=== PATIENT | female | born 1940 | race Two or more races ===

== ENCOUNTER 2023-08-02 20:34 | Inpatient (IN) | payer MEDICARE, OTHER ==
[~2023-08-02] VITALS: Ht 149.9 cm; Wt 50.8 kg
[2023-08-02 23:00] VITALS: BP 179/65; TEMP 97.9; O2SAT 100
[2023-08-02] MEDS ORDERED: HYDR-4077 PO (23:58)
[2023-08-02] MEDS ORDERED: APIX2.5T PO (23:58)
[2023-08-02] MEDS ORDERED: CLOP75TA15 PO (23:58)
[2023-08-02] MEDS ORDERED: FURO-145 PO (23:58)
[2023-08-02] MEDS ORDERED: LOSA50TA39 PO (23:58)
[2023-08-02] MEDS ORDERED: ATOR40TA PO (23:58)
[2023-08-02] MEDS ORDERED: NIFE-34 PO (23:58)
[2023-08-02] MEDS ORDERED: NEBI10TA2 PO (23:58)
[2023-08-03] MEDS ORDERED: ACETAMINOPHEN 325 MG TABLET PO PRN (02:00)
[2023-08-03] MEDS ORDERED: ONDANSETRON HCL/PF 4 MG/2 ML VIAL IVP PRN (02:00)
[2023-08-03] MEDS ORDERED: ZOLPIDEM TARTRATE 5 MG TABLET PO PRN (02:00)
[2023-08-03] MEDS: CEFTRIAXONE 1 G in IV D5W 50 ML IV SCH ×2 (02:00→21:10)
[2023-08-03] MEDS ORDERED: Z GUARD REMEDY 4 OZ OINT TP PRN (02:00)
[2023-08-03] MEDS ORDERED: MAG HYDROX/AL HYDROX/SIMETH 30 ML UDC PO PRN (02:00)
[2023-08-03] MEDS ORDERED: MAGNESIUM HYDROXIDE 30 ML UDC PO PRN (02:00)
[2023-08-03 02:30] VITALS: BP 156/65; O2SAT 98
[2023-08-03 04:00] VITALS: BP 148/72; TEMP 98.8; O2SAT 95
[2023-08-03 05:58] LABS: BASOPHILS % (AUTO) 0.3 % (0.0-2.0); EOSINOPHILS # (AUTO) 0.1 K/uL (0.0-0.7); EOSINOPHILS % (AUTO) 0.7 % (0.0-6.0); HEMATOCRIT 27 % (33-45); HEMOGLOBIN 8.9 g/dL (11.5-14.8); LYMPHOCYTES # (AUTO) 1.1 K/uL (0.8-4.8); LYMPHOCYTES % (AUTO) 7.4 % (20.0-44.0); MEAN CORPUSCULAR HEMOGLOBIN 30 PG (26.0-33.0); MEAN CORPUSCULAR HGB CONC 33 g/dl (31.0-36.0); MEAN CORPUSCULAR VOLUME 91 fL (82-100); MONOCYTES # (AUTO) 1.5 K/uL (0.1-1.30); MONOCYTES % (AUTO) 9.8 % (2.0-12.0); NEUTROPHILS # (AUTO) 12.7 K/uL (1.8-8.9); NEUTROPHILS % (AUTO) 81.8 % (43.0-81.0); PLATELET COUNT (AUTO) 242 K/uL (150-450); RED BLOOD CELL COUNT(AUTO) 2.91 MIL/uL (4.0-5.2); RED CELL DISTRIBUTION WIDTH 14.1 % (11.5-15.0); WHITE BLOOD COUNT (AUTO) 15.5 K/uL (4.3-11.0)
[2023-08-03 06:15] LABS: BAND % (MANUAL) 5 % (0.0-5.0); LYMPHOCYTES % (MANUAL) 8 % (16-48); MONOCYTES % (MANUAL) 2 % (0-11.0); MYELOCYTES % 2 % (0-0); NEUTROPHILS % (MANUAL) 83 (42-76); PLATELET ESTIMATE ADEQUATE
[2023-08-03 06:40] LABS: CALCIUM, SERUM 7.9 mg/dL (8.5-10.1); CREATININE 0.7 mg/dL (0.6-1.3); PHOSPHORUS 2.6 mg/dL (2.5-4.9)
[2023-08-03 08:00] VITALS: BP 134/50; TEMP 98.4; O2SAT 94
[2023-08-03] MEDS ORDERED: PANTOPRAZOLE 40 MG VIAL IV SCH (09:00)
[2023-08-03] MEDS ORDERED: ENOXAPARIN SODIUM 30 MG/0.3 ML DISP.SYRIN SQ SCH (09:00)
[2023-08-03] MEDS: POTASSIUM CHLORIDE 20 MEQ TAB.PRT.SR PO SCH ×3 (09:08→11:01)
[2023-08-03] MEDS: hydrALAZINE HCL 50 MG TABLET PO SCH ×3 (09:09→17:13)
[2023-08-03] MEDS: CLOPIDOGREL BISULFATE 75 MG TABLET PO SCH (09:09)
[2023-08-03] MEDS: FUROSEMIDE 40 MG/4 ML VIAL IV SCH ×2 (09:09→17:12)
[2023-08-03] MEDS: LOSARTAN POTASSIUM 50 MG TABLET PO SCH (09:10)
[2023-08-03] MEDS: METOPROLOL TARTRATE 50 MG TABLET PO SCH ×2 (09:10→17:14)
[2023-08-03] MEDS: NIFEdipine XL (30MG) 30 MG TAB PO SCH (09:11)
[2023-08-03] MEDS: APIXABAN 2.5 MG TABLET PO SCH ×2 (09:12→17:13)
[2023-08-03] MEDS: DOXYCYCLINE 100 MG in IV D5W 100 ML IV SCH ×2 (09:13→20:25)
[2023-08-03 16:00] VITALS: BP 142/57; TEMP 98.1; O2SAT 96
[2023-08-03 20:00] VITALS: BP 137/59; TEMP 98.4
[2023-08-03] MEDS: ATORVASTATIN 40 MG TABLET PO SCH (21:10)
[2023-08-04 05:43] LABS: BASOPHILS % (AUTO) 0.2 % (0.0-2.0); EOSINOPHILS # (AUTO) 0.2 K/uL (0.0-0.7); EOSINOPHILS % (AUTO) 1.3 % (0.0-6.0); HEMATOCRIT 26 % (33-45); HEMOGLOBIN 8.6 g/dL (11.5-14.8); LYMPHOCYTES # (AUTO) 1.3 K/uL (0.8-4.8); LYMPHOCYTES % (AUTO) 9.3 % (20.0-44.0); MEAN CORPUSCULAR HEMOGLOBIN 31 PG (26.0-33.0); MEAN CORPUSCULAR HGB CONC 33 g/dl (31.0-36.0); MEAN CORPUSCULAR VOLUME 92 fL (82-100); MONOCYTES # (AUTO) 1.4 K/uL (0.1-1.30); NEUTROPHILS # (AUTO) 11.1 K/uL (1.8-8.9); NEUTROPHILS % (AUTO) 79.2 % (43.0-81.0); PLATELET COUNT (AUTO) 248 K/uL (150-450); RED CELL DISTRIBUTION WIDTH 14.8 % (11.5-15.0)
[2023-08-04 05:59] LABS: ALANINE AMINOTRANSFERASE 27 U/L (12-78); ALKALINE PHOSPHATASE 112 U/L (46-116); ASPARTATE AMINOTRANSFERASE 17 U/L (15-37); BILIRUBIN,TOTAL 0.7 mg/dL (0.2-1.0); CALCIUM, SERUM 8.7 mg/dL (8.5-10.1); CARBON DIOXIDE 25 mmol/L (21-32); CHLORIDE 95 mmol/L (98-107); CREATININE 0.9 mg/dL (0.6-1.3); GLUCOSE 101 mg/dL (74-106); MAGNESIUM 1.9 mg/dL (1.8-2.4); PHOSPHORUS 3.1 mg/dL (2.5-4.9); POTASSIUM 3.3 mmol/L (3.5-5.1); SODIUM SERUM 129 mmol/L (136-145); TOTAL PROTEIN, SERUM 6.1 g/dL (6.4-8.2); UREA NITROGEN, BLOOD 18 mg/dL (7-18)
[2023-08-04 07:00] VITALS: BP 170/59; TEMP 98.1; O2SAT 96
[2023-08-04] MEDS: DOXYCYCLINE 100 MG in IV D5W 100 ML IV SCH ×2 (08:23→20:47)
[2023-08-04] MEDS: FUROSEMIDE 100 MG/10 ML VIAL IV SCH ×3 (08:23→16:21)
[2023-08-04] MEDS: POTASSIUM CHLORIDE 20 MEQ TAB.PRT.SR PO SCH ×5 (08:24→12:13)
[2023-08-04] MEDS: PANTOPRAZOLE 40 MG TABLET.DR PO SCH (08:24)
[2023-08-04] MEDS: METOPROLOL TARTRATE 50 MG TABLET PO SCH ×2 (08:25→16:23)
[2023-08-04] MEDS: CLOPIDOGREL BISULFATE 75 MG TABLET PO SCH (08:25)
[2023-08-04] MEDS: LOSARTAN POTASSIUM 50 MG TABLET PO SCH (08:26)
[2023-08-04] MEDS: NIFEdipine XL (30MG) 30 MG TAB PO SCH (08:26)
[2023-08-04] MEDS: APIXABAN 2.5 MG TABLET PO SCH (08:28)
[2023-08-04 09:20] LABS: EOSINOPHILS % (MANUAL) 1 % (0-4); LYMPHOCYTES % (MANUAL) 10 % (16-48); MONOCYTES % (MANUAL) 10 % (0-11.0); NEUTROPHILS % (MANUAL) 79 (42-76); PLATELET ESTIMATE ADEQUATE
[2023-08-04 09:21] LABS: ANISOCYTOSIS 1+
[2023-08-04] MEDS ORDERED: CLONIDINE HCL 0.1 MG TABLET PO PRN (10:30)
[2023-08-04 16:00] VITALS: BP 175/59; TEMP 98.6; O2SAT 97
[2023-08-04 20:00] VITALS: BP 152/60; TEMP 98.6; O2SAT 99
[2023-08-04] MEDS: CEFTRIAXONE 1 G in IV D5W 50 ML IV SCH (22:03)
[2023-08-04] MEDS: ATORVASTATIN 40 MG TABLET PO SCH (22:03)
[2023-08-05 06:50] LABS: BASOPHILS # (AUTO) 0.1 K/uL (0.0-0.2); BASOPHILS % (AUTO) 0.5 % (0.0-2.0); EOSINOPHILS # (AUTO) 0.3 K/uL (0.0-0.7); EOSINOPHILS % (AUTO) 1.7 % (0.0-6.0); HEMATOCRIT 33 % (33-45); LYMPHOCYTES % (AUTO) 12.4 % (20.0-44.0); MEAN CORPUSCULAR HEMOGLOBIN 31 PG (26.0-33.0); MEAN CORPUSCULAR HGB CONC 33 g/dl (31.0-36.0); MEAN CORPUSCULAR VOLUME 92 fL (82-100); MONOCYTES # (AUTO) 1.4 K/uL (0.1-1.30); MONOCYTES % (AUTO) 8.7 % (2.0-12.0); NEUTROPHILS # (AUTO) 12.3 K/uL (1.8-8.9); NEUTROPHILS % (AUTO) 76.7 % (43.0-81.0); PLATELET COUNT (AUTO) 320 K/uL (150-450); RED BLOOD CELL COUNT(AUTO) 3.59 MIL/uL (4.0-5.2); RED CELL DISTRIBUTION WIDTH 14.5 % (11.5-15.0); WHITE BLOOD COUNT (AUTO) 16.1 K/uL (4.3-11.0)
[2023-08-05 07:00] VITALS: BP 160/61; TEMP 98.1; O2SAT 98
[2023-08-05 07:05] LABS: ALANINE AMINOTRANSFERASE 34 U/L (12-78); ALBUMIN 3.6 g/dL (3.4-5.0); ALKALINE PHOSPHATASE 140 U/L (46-116); ASPARTATE AMINOTRANSFERASE 23 U/L (15-37); BILIRUBIN,TOTAL 0.9 mg/dL (0.2-1.0); CALCIUM, SERUM 9.5 mg/dL (8.5-10.1); CARBON DIOXIDE 28 mmol/L (21-32); CHLORIDE 95 mmol/L (98-107); GLUCOSE 108 mg/dL (74-106); PHOSPHORUS 3.9 mg/dL (2.5-4.9); POTASSIUM 3.5 mmol/L (3.5-5.1); SODIUM SERUM 133 mmol/L (136-145); TOTAL PROTEIN, SERUM 7.4 g/dL (6.4-8.2); UREA NITROGEN, BLOOD 19 mg/dL (7-18)
[2023-08-05 07:16] LABS: THYROID STIMULATING HORMONE 6.527 uIU/mL (0.358-3.74); URIC ACID 4.5 mg/dL (2.6-7.2)
[2023-08-05 09:00] LABS: EOSINOPHILS % (MANUAL) 2 % (0-4); LYMPHOCYTES % (MANUAL) 14 % (16-48); MONOCYTES % (MANUAL) 8 % (0-11.0); NEUTROPHILS % (MANUAL) 76 (42-76); PLATELET ESTIMATE ADEQUATE
[2023-08-05] MEDS: CLOPIDOGREL BISULFATE 75 MG TABLET PO SCH (09:00)
[2023-08-05] MEDS: DOXYCYCLINE 100 MG in IV D5W 100 ML IV SCH ×2 (09:41→20:37)
[2023-08-05] MEDS: NIFEdipine XL (30MG) 30 MG TAB PO SCH (09:42)
[2023-08-05] MEDS: PANTOPRAZOLE 40 MG TABLET.DR PO SCH (09:43)
[2023-08-05] MEDS: LOSARTAN POTASSIUM 50 MG TABLET PO SCH (09:43)
[2023-08-05] MEDS: METOPROLOL TARTRATE 50 MG TABLET PO SCH ×2 (09:43→16:55)
[2023-08-05 11:21] LABS: INR 1.1 (0.91-1.10); PARTIAL THROMBOPLASTIN TIME 23.4 SEC (24.3-34.3); PROTHROMBIN TIME 11.6 SECS (9.2-11.1)
[2023-08-05 16:00] VITALS: BP 127/57; TEMP 98; O2SAT 95
[2023-08-05 21:11] VITALS: BP 150/65; TEMP 98.2; O2SAT 96
[2023-08-05] MEDS: ATORVASTATIN 40 MG TABLET PO SCH (21:25)
[2023-08-05] MEDS: CEFTRIAXONE 1 G in IV D5W 50 ML IV SCH (22:01)
[2023-08-06 05:53] LABS: BASOPHILS # (AUTO) 0.1 K/uL (0.0-0.2); BASOPHILS % (AUTO) 0.4 % (0.0-2.0); EOSINOPHILS # (AUTO) 0.2 K/uL (0.0-0.7); EOSINOPHILS % (AUTO) 1.1 % (0.0-6.0); HEMATOCRIT 29 % (33-45); HEMOGLOBIN 9.5 g/dL (11.5-14.8); LYMPHOCYTES # (AUTO) 1.4 K/uL (0.8-4.8); LYMPHOCYTES % (AUTO) 8.9 % (20.0-44.0); MEAN CORPUSCULAR HEMOGLOBIN 31 PG (26.0-33.0); MEAN CORPUSCULAR HGB CONC 34 g/dl (31.0-36.0); MEAN CORPUSCULAR VOLUME 92 fL (82-100); MONOCYTES # (AUTO) 1.4 K/uL (0.1-1.30); MONOCYTES % (AUTO) 8.8 % (2.0-12.0); NEUTROPHILS % (AUTO) 80.8 % (43.0-81.0); PLATELET COUNT (AUTO) 255 K/uL (150-450); RED CELL DISTRIBUTION WIDTH 14.6 % (11.5-15.0); WHITE BLOOD COUNT (AUTO) 16.1 K/uL (4.3-11.0)
[2023-08-06 06:06] LABS: CARBON DIOXIDE 25 mmol/L (21-32); CHLORIDE 99 mmol/L (98-107); CREATININE 0.8 mg/dL (0.6-1.3); GLUCOSE 91 mg/dL (74-106); PHOSPHORUS 3.8 mg/dL (2.5-4.9); POTASSIUM 3.7 mmol/L (3.5-5.1); SODIUM SERUM 134 mmol/L (136-145); UREA NITROGEN, BLOOD 23 mg/dL (7-18)
[2023-08-06 06:20] LABS: THYROID STIMULATING HORMONE 3.428 uIU/mL (0.358-3.74)
[2023-08-06 08:00] VITALS: BP 151/59; TEMP 99; O2SAT 96
[2023-08-06] MEDS: METOPROLOL TARTRATE 50 MG TABLET PO SCH (08:49)
[2023-08-06] MEDS: NIFEdipine XL (30MG) 30 MG TAB PO SCH (08:49)
[2023-08-06] MEDS: PANTOPRAZOLE 40 MG TABLET.DR PO SCH (08:49)
[2023-08-06] MEDS: DOXYCYCLINE 100 MG in IV D5W 100 ML IV SCH (08:50)
[2023-08-06] MEDS: LOSARTAN POTASSIUM 50 MG TABLET PO SCH (08:50)
[2023-08-06] MEDS: CLOPIDOGREL BISULFATE 75 MG TABLET PO SCH (08:50)
[2023-08-06] MEDS ORDERED: DOXY100T2 PO (09:47)
[2023-08-06 12:00] VITALS: BP 117/24; TEMP 97.7; O2SAT 93
== END 2023-08-06 16:25 | disposition home or self-care (01) | DRG 291 ==
LOC: TELE 22:48 → MED 08-03 12:10
PROVIDERS: ADMIT Internal Medicine; ATTEND Internal Medicine
PROC: 0W993ZZ Drainage of Right Pleural Cavity, Percutaneous Approach (ICD-10-PCS; principal; 2023-08-05)
DX: I11.0 Hypertensive heart disease with heart failure (principal); I50.33 Acute on chronic diastolic (congestive) heart failure; J96.01 Acute respiratory failure with hypoxia; D68.69 Other thrombophilia; E87.1 Hypo-osmolality and hyponatremia; J90 Pleural effusion, not elsewhere classified; I48.91 Unspecified atrial fibrillation; D64.9 Anemia, unspecified; D72.829 Elevated white blood cell count, unspecified; E78.5 Hyperlipidemia, unspecified; I25.10 Atherosclerotic heart disease of native coronary artery without angina pectoris; Z79.01 Long term (current) use of anticoagulants; Z95.2 Presence of prosthetic heart valve; Z98.61 Coronary angioplasty status; E87.6 Hypokalemia; Z95.810 Presence of automatic (implantable) cardiac defibrillator
CPT/HCPCS: 36415; 71045-TC; 80048-TC; 80053-TC; 80061-TC; 82040-TC; 83735-TC; 84100-TC; 84439-TC; 84443-TC; 84481; 84550-TC; 85025-TC; 85610-TC; 85730-TC; 87081-TC; 88108-TC; 88305-TC; 88312-TC; 88341; 88342; 93307-TC; C9113; G0378; J0696; J1940; J3490; J7030; J7050; J7060